=== PATIENT | female | born 1945 | race Caucasian/White ===

== ENCOUNTER → 2017-01-12 | Outpatient (CLI) | payer OTHER, MEDICARE ==
[2014-09-17 11:34] VITALS: BP 148/84
[~2017-01-12] MED LIST: ALBU8.5H6 IH; ALPR0.25 PO; ALPR0.254 PO; ALPR0.5T PO; ANAS1TAB PO; CITA40TA12 PO; ENAL1TAB PO; ENAL1TAB5 PO; FERR325C PO; FLUT10.6 IH; HYDR-2666 PO; IBUP200C PO; IBUP200T77 PO; MAGN400O4 PO; OMEP20CA5 PO; POTA99TA10 PO; PROC5TAB14 PO; SUCR1TAB29 PO; TRAM-29 PO; VENTOLIN HFA18 GM IH; [UNRECOGNIZED DRUG - CODE] MC
--- NOTE | 2017-01-12 17:21 | KCIC ---
Diagnostic digital mammogram right breast with CAD: HISTORY Routine screening. History of left breast cancer with mastectomy COMPARISON Comparison is made to previous studies dated 12/01/2015 and 11/05/2014. FINDINGS Breast density category B. The skin and nipple show no abnormalities. No abnormal lymph nodes are seen in the axilla. The breast parenchyma shows scattered fibroglandular density. There appears to be a new 5 millimeter nodule at the 3 o'clock B position of the right breast. Recommend further evaluation with ultrasound. There are no other new dominant masses, suspicious calcifications or architectural distortions. IMPRESSION New 5 millimeter nodular in the 3 o'clock B position of the right breast. Recommend further evaluation with ultrasound. This study was interpreted with the benefit of Computerized Aided Detection (CAD). Mammography is not 100% sensitive in detecting breast cancer. Therefore, a self breast exam and a clinical breast exam are very important. A negative mammogram does not negate a clinically suspicious finding and should not result in a delay in biopsying a clinically suspicious abnormality. BI-RADS category 0: Incomplete. Ultrasound followup is recommended. This patient's information has been entered into a reminder system for the patient to be notified with the results of this examination and a target date for her next mammograms. Electronically signed by: Christianne Theodore MD (Jan 12, 2017 17:20:12)
== END | disposition home or self-care (01) ==
LOC: KCIC MAMMO 12:55
PROVIDERS: ATTEND Internal Medicine Hematology & Oncology
DX: C23 Malignant neoplasm of gallbladder (principal); C50.912 Malignant neoplasm of unspecified site of left female breast; Z85.3 Personal history of malignant neoplasm of breast
CPT/HCPCS: G0206; 77065

== ENCOUNTER → 2017-01-13 | Outpatient (CLI) | payer OTHER, MEDICARE ==
[2014-09-17 11:34] VITALS: BP 148/84
--- NOTE | 2017-01-13 09:43 | KCIC ---
Right breast ultrasound: Reason for examination: New nodule on screening mammogram. Comparison is made to mammographic exam dated 01/12/2017. Ultrasound examination of the right breast was performed with attention to the area of mammographic concern and the right axilla. In the 3 o'clock position 5 centimeters from the nipple, there is a small hypoechoic lesion which is fairly well-circumscribed and measures approximately 3 millimeters in greatest dimension. This may represent a complicated cyst or small focus of fibrocystic change. No posterior shadowing is seen. No other focal lesions are seen. No abnormal appearing lymph nodes are seen in the axilla. Impression: Small 3 millimeter hypoechoic lesion in the 3 o'clock position. This has a benign appearance and may represent a complicated cyst or small focus of fibrocystic change. Recommend close followup however with re-evaluation in 3 months with ultrasound. BI-RADS category 3: Probably benign. This patient's information has been entered into a reminder system for the patient to be notified with the results of this examination and a target date for her next mammograms. Electronically signed by: Christianne Theodore MD (Jan 13, 2017 09:41:40)
== END | disposition home or self-care (01) ==
LOC: KCIC US 09:02
PROVIDERS: ATTEND Internal Medicine Hematology & Oncology
DX: R92.8 Other abnormal and inconclusive findings on diagnostic imaging of breast (principal); N63 Unspecified lump in breast
CPT/HCPCS: 76641

== ENCOUNTER → 2017-03-31 | Outpatient (CLI) | payer MEDICARE, OTHER ==
[2014-09-17 11:34] VITALS: BP 148/84
--- NOTE | 2017-03-31 10:59 | RAD ---
Indication 3 month follow-up. Targeted imaging to the right breast was performed. Comparison is made to an exam 01/13/2017. Again seen at the 3:00 position of the breast, 5 cm from the nipple is a 3 mm nodule unchanged in appearance relative to the previous exam. A follow-up ultrasound examination is suggested in 6 months to further document stability. IMPRESSION: Unchanged 3 mm nodule in the right breast. Follow-up targeted ultrasound examination suggested in 6 months BI-RADS 3. Probably benign. Follow-up in 6 months
--- NOTE | 2017-03-31 11:14 | KCIC ---
PROCEDURE CT chest abdomen and pelvis without contrast. HISTORY Follow up of left breast cancer and gallbladder cancer. TECHNIQUE Helical CT imaging of the chest abdomen and pelvis is performed without IV or oral contrast. PQRS: One or more the following individualized dose reduction techniques were utilized for the study: 1. Automated exposure control. 2. Adjustment of the mA and/or kV according to patient size. 3. Use of iterative reconstruction technique. COMPARISON CT chest abdomen pelvis without contrast February 05, 2016. FINDINGS Evaluation of solid organs and bowel is limited without oral and IV contrast, decreasing sensitivity for detection of pathology. Left mastectomy. No adenopathy in the chest. Limited evaluation of the rachel without IV contrast. Three vessel coronary artery disease. The great vessels are stable. Cardiac size normal, no pericardial effusion. The central airways are patent. The lungs are clear. No pleural abnormality. There is a hypodense mass in subcapsular segment 6 of the liver that measures 1.9 cm AP x 3.6 cm transverse. The there is a 2nd hypodense mass in segment 5 measuring about 2 centimeters. There is a 7 millimeter hypodensity lateral to the IVC in the liver. Cholecystectomy. Spleen size normal. Pancreas and adrenal glands and abdominal aortic caliber are normal. Small left renal cysts. No hydronephrosis is seen. Since the prior study there has been development of moderate abdominal and pelvic ascites. There are multiple tiny soft tissue densities in the omentum, for example image 73. Stomach is not well distended accentuating wall thickness. There is no obvious abnormality. A small duodenal diverticulum contains air, image 66. There is no dilated small bowel. There is moderate stool in the colon. There is no evidence of colitis. Appendix is normal caliber. No evidence of appendicitis. No mesenteric or retroperitoneal adenopathy. The urinary bladder is not well distended. Uterus surgically absent. There is a left adnexal soft tissue density mass measuring 4.4 cm AP x 3.3 cm transverse by 4.1 cm craniocaudal. There is moderate S-shaped thoracolumbar scoliosis. No osteolytic or blastic lesion is identified. IMPRESSION 1. Interval development of moderate abdominal and pelvic ascites. There are numerous tiny soft tissue densities in the omentum. Findings suspicious for peritoneal carcinomatosis. 2. There is left adnexal soft tissue mass. Ovarian malignancy or metastatic disease in the differential. 3. There are small liver masses that may be metastases. Electronically signed by: Monster Luevano MD (March 31, 2017 11:12:47)
== END | disposition home or self-care (01) ==
LOC: KCIC CT 10:08
PROVIDERS: ATTEND Internal Medicine Hematology & Oncology
DX: R92.8 Other abnormal and inconclusive findings on diagnostic imaging of breast (principal); C23 Malignant neoplasm of gallbladder; C50.912 Malignant neoplasm of unspecified site of left female breast
CPT/HCPCS: 71250; 74176; 76641